=== PATIENT | male | born 1970 | race Caucasian/White ===

== ENCOUNTER → 2016-07-16 | Outpatient (CLI) | payer BC ==
[2015-10-18 10:40] VITALS: BP 107/70
[~2016-07-16] MED LIST: NAPR220C4 PO; OXYC-323 PO
--- NOTE | 2016-07-16 09:59 | RAD ---
Left inguinal hernia repair several months previously. Swelling. Targeted ultrasound to the left groin was performed. There is a hernia in the left groin. Bowel is seen herniating into the left groin. IMPRESSION: Hernia left groin
== END | disposition home or self-care (01) ==
LOC: US 07:43
PROVIDERS: ATTEND Surgery
DX: K40.90 Unilateral inguinal hernia, without obstruction or gangrene, not specified as recurrent (principal)
CPT/HCPCS: 76881

== ENCOUNTER 2016-08-22 06:26 | Day surgery (SDC) | payer BC ==
[2016-08-22] MEDS ORDERED: PROCHLORPERAZINE 10 MG/2 ML VIAL. IV PRN (07:00)
[2016-08-22] MEDS ORDERED: HYDROmorphone 2 MG/ML VIAL IV PRN (07:00)
[2016-08-22] MEDS ORDERED: IV RINGERS,LACTATED 1000ML 1,000 ML IV SCH (07:00)
[2016-08-22] MEDS ORDERED: ONDANSETRON PF 4 MG/2 ML VIAL. IV PRN (07:00)
[2016-08-22] MEDS ORDERED: MORPHINE SULFATE 2 MG/ML DISP.SYRIN. IV PRN (07:00)
[2016-08-22] MEDS ORDERED: fentaNYL PF VIAL 100 MCG/2 ML VIAL IV PRN ×2 (07:00)
[2016-08-22] MEDS ORDERED: LIDOCAINE 1% 1 ML SYRINGE. ID PRN (07:00)
[2016-08-22] MEDS ORDERED: BUPIVACAINE-EPI 0.25%-1:200000 50 ML VIAL. ONE (07:15)
[2016-08-22] MEDS ORDERED: LIDOCAINE 2% PF Vial for OR 5 ML VIAL. ONE (07:21)
[2016-08-22] MEDS ORDERED: ROCURONIUM 50 MG/5 ML VIAL. ONE (07:21)
[2016-08-22] MEDS ORDERED: fentaNYL PF VIAL 100 MCG/2 ML VIAL ONE ×2 (07:21→07:48)
[2016-08-22] MEDS ORDERED: MIDAZOLAM HCL/PF 2 MG/2 ML VIAL. ONE (07:21)
[2016-08-22] MEDS ORDERED: ONDANSETRON PF 4 MG/2 ML VIAL. ONE (07:21)
[2016-08-22] MEDS ORDERED: PROPOFOL 20 ML IV ONE ×2 (07:21→08:12)
--- NOTE | 2016-08-22 07:39 | PDOC1 ---
History and Physical Date of Admission Date of Admission DATE: 08/22/16 TIME: 07:36 Identification/Chief Complaint Chief Complaint painful bulge left groin Problems: Source Source: Patient History of Present Illness History of Present Illness 46 yo male with recurrence of LIH Past Medical History Cardiovascular: No pertinent hx Pulmonary: No pertinent hx GI: No pertinent hx Heme/Onc: No pertinent hx Hepatobiliary: No pertinent hx Psych: No pertinent hx, Depression Rheumatologic: No pertinent hx Infectious disease: No pertinent hx ENT: No pertinent hx Renal/: No pertinent hx Endocrine: No pertinent hx Dermatology: No pertinent hx Past Surgical History Past Surgical History: Appendectomy, Other Family History Family History: No Significant Social History ALCOHOL: none Drugs: None Current Medications Current Medications Current Medications Ondansetron HCl (Zofran) 4 mg PRN Q6HRS PRN IV NAUSEA/VOMITING; Start 08/22/16 at 07:00; Stop 08/23/16 at 06:59 Fentanyl Citrate (Fentanyl 2ml Vial) 25 mcg PRN Q5MIN PRN IV MILD PAIN; Start 08/22/16 at 07:00; Stop 08/23/16 at 06:59 Fentanyl Citrate (Fentanyl 2ml Vial) 50 mcg PRN Q5MIN PRN IV MODERATE PAIN; Start 08/22/16 at 07:00; Stop 08/23/16 at 06:59 Morphine Sulfate 1 mg PRN Q10MIN PRN IV SEVERE PAIN; Start 08/22/16 at 07:00; Stop 08/23/16 at 06:59 Ringer's Solution 1,000 ml @ 30 mls/hr Q24H IV Last administered on 08/22/16t 07:00; Start 08/22/16 at 07:00; Stop 08/22/16 at 18:59 Lidocaine HCl 2 ml PRN 1X PRN ID PRIOR TO IV START; Start 08/22/16 at 07:00; Stop 08/23/16 at 06:59 Hydromorphone HCl (Dilaudid) 0.5 mg PRN Q10MIN PRN IV SEV PAIN, Second choice; Start 08/22/16 at 07:00; Stop 08/23/16 at 06:59 Prochlorperazine Edisylate (Compazine) 5 mg PACU PRN PRN IV NAUSEA, MRX1; Start 08/22/16 at 07:00; Stop 08/23/16 at 06:59 Cefazolin Sodium/ Dextrose 50 ml @ 100 mls/hr 1X PREOP PRN IV Pre Op Dose; Start 08/22/16 at 06:00; Stop 08/23/16 at 05:59 Bupivacaine HCl/ Epinephrine Bitart (Marcaine-Epi 0.25%-1:[id number]) 50 ml STK-MED ONCE .ROUTE ; Start 08/22/16 at 07:15; Stop 08/22/16 at 07:16; Status DC Ondansetron HCl (Zofran) 4 mg STK-MED ONCE .ROUTE ; Start 08/22/16 at 07:21; Stop 08/22/16 at 07:22; Status DC Propofol 20 ml @ As Directed STK-MED ONCE IV ; Start 08/22/16 at 07:21; Stop at 07:22; Status DC Lidocaine HCl (Lidocaine Pf 2% Vial) 5 ml STK-MED ONCE .ROUTE ; Start 08/22/16 at 07:21; Stop 08/22/16 at 07:22; Status DC Midazolam HCl (Versed) 2 mg STK-MED ONCE .ROUTE ; Start 08/22/16 at 07:21; Stop 08/22/16 at 07:22; Status DC Fentanyl Citrate (Fentanyl 2ml Vial) 100 mcg STK-MED ONCE .ROUTE ; Start at 07:21; Stop 08/22/16 at 07:22; Status DC Rocuronium Ceres (Zemuron) 50 mg STK-MED ONCE .ROUTE ; Start 08/22/16 at 07:21 ; Stop 08/22/16 at 07:22; Status DC Active Scripts Active Reported Percocet 5-325 Mg Tablet (Oxycodone/Acetaminophen) 1 Each Tablet 1-2 Tab PO Q4- 6HRS LAST DOSE GIVEN: DATE: TIME: NEXT DOSE DUE: DATE: TIME: Aleve (Naproxen Sodium) 220 Mg Capsule 440 Mg PO PRN DAILY PRN Allergies Allergies: Coded Allergies: No Known Drug Allergies (Unverified , 08/20/16) ROS Genitourinary: YES Other (left groin pain) Physical Exam General: Alert, Oriented X3, Cooperative, No acute distress HEENT: Atraumatic, PERRLA, EOMI Lungs: Clear to auscultation, Normal air movement Heart: S1S2, no murmurs Abdomen: Normal bowel sounds, Soft, No tenderness, Other Male Genitals Exam: hernia (left) Rectal Exam: not examined Extremities: No clubbing, No cyanosis, No edema Skin: No rashes Neuro: Normal gait, Normal speech Psych/Mental Status: Mental status NL Vitals Vitals Vital Signs Date Time Temp Pulse Resp B/P (MAP) Pulse Ox O2 Delivery O2 Flow Rate FiO2 08/22/16 07:03 98.7 60 15 121/77 100 Room Air 98.7 VTE Prophylaxis Ordered VTE Prophylaxis Devices: Yes VTE Pharmacological Prophylaxi: No Assessment/Plan Assessment/Plan Recurrent LIH plan L/S robotic assisted hernia repair HARDEEP NEGRON MD Aug 22, 2016 07:39
[2016-08-22] MEDS ORDERED: DEXAMETHASONE SOD PHOS 20 MG/5 ML VIAL. ONE (07:47)
[2016-08-22] MEDS ORDERED: MORPHINE SULFATE 10 MG/ML VIAL. ONE (08:23)
[2016-08-22] MEDS ORDERED: DESFLURANE 61 TO 120 MINUTES IH ONE (08:31)
[2016-08-22] MEDS ORDERED: NEOSTIGMINE METHYLSULFATE 5 MG/5 ML SYRINGE. ONE (08:32)
[2016-08-22] MEDS ORDERED: GLYCOPYRROLATE 1 MG/5 ML VIAL. ONE (08:32)
[2016-08-22] MEDS ORDERED: KETOROLAC 30 MG/ML INJ FOR OR. INJ ONE (08:40)
--- NOTE | 2016-08-22 08:49 | DISCH ---
DISCHARGE INSTRUCTIONS Condition on Discharge Condition on Discharge: Stable Activity After Discharge Activity Instructions for Disc: Avoid exertion Other activity instructions: No lifting >20lbs for 2 weeks Lifting Instructions after Dis: No heavy lifting Diet after Discharge Diet after Discharge: Regular Wound Incision Care Other wound/incision instructi: May shower in 24 hours Contacting the after DC Call your doctor for: If your condition worsens Follow-Up Follow up with: Dr Negron in 2 weeks HARDEEP NEGRON MD Aug 22, 2016 08:49
--- NOTE | 2016-08-22 09:06 | PDOC4 ---
Operative Note Operative Note Date: 08/22/2016 Reoperative diagnosis: Recurrent left inguinal hernia Postoperative diagnosis: Same Procedure: Robotic-assisted laparoscopic left inguinal hernia repair with mesh Surgeon: Dustin Mr. Crouch is a 46-year-old male with recurrent left inguinal hernia. The procedure of robotic-assisted laparoscopic left inguinal hernia repair with mesh was explained to the patient in detail all risks benefits were also discussed including bleeding and infection and possible further operations. Patient seemed understanding gave verbal and written consent to have the procedure performed. Patient was taken to the operating room placed in supine position general anesthesia was initiated once patient was asleep and intubated he was then placed in low lithotomy and his abdomen was prepped and draped in usual sterile fashion using ChloraPrep. An area around the umbilicus was injected with quarter percent Marcaine with epinephrine and an incision was made with 11 blade scalpel varies needle was placed within the abdomen and a pneumoperitoneum was achieved. At this point an 8 mm da Curly's port was placed upper scopic camera was placed within the abdomen and the abdomen was inspected was noted that he had a hernia in the left inguinal area otherwise normal abdomen. At this point 2 8 mm ports were placed under direct visualization one in the left mid abdomen and one in the right mid abdomen. The da Curly robot was brought in and docked to all ports, the surgeon went to the robotic console using grasper and Endo Pranav scissors peritoneum was incised over the left groin area is taken down with blunt and sharp dissection reducing the hernia sac. At this point Pro lime sludge kiln operator mesh was then placed over the hernia defect and the peritoneum was closed with a running 20V lock suture. Once this was complete all ports were removed and the pneumoperitoneum was reduced. Skin incisions were all closed with 4-0 Monocryl subcuticular stitch Mastisol Steri-Strips and Band-Aids were applied as dressing. The patient was awakened and extubated in the operating room, all sponge instrument and needle counts were correct. Patient was taken to recovery in stable condition. Estimated blood loss: 10 mL HARDEEP NEGRON MD Aug 22, 2016 09:06
[2016-08-22] MEDS ORDERED: oxyCODONE/APAP 5/325 1 TAB TABLET PO ONE (09:30)
[2016-08-22 10:00] VITALS: BP 112/56
== END 2016-08-22 10:05 | disposition home or self-care (01) ==
LOC: SURG 06:26
PROVIDERS: ATTEND Surgery
DX: K40.91 Unilateral inguinal hernia, without obstruction or gangrene, recurrent (principal); E66.9 Obesity, unspecified; Z87.39 Personal history of other diseases of the musculoskeletal system and connective tissue; Z68.42 Body mass index [BMI] 45.0-49.9, adult; Z72.89 Other problems related to lifestyle; Z72.0 Tobacco use
CPT/HCPCS: 49651; C1781; J1100; J1885; J2001; J2250; J2270; J2405; J2704; J2710; J3010; J3490; J7120